=== PATIENT | male | born 1955 ===

== ENCOUNTER 2019-02-07 08:09 | Emergency (ER) | payer OTHER ==
--- NOTE | 2019-02-07 08:23 | ED ---
Head Injury - HPI Summary HPI Summary: A 63 y/o M presents to ED s/p head trauma onset approx 10-20 mins [employer]. Pt was at work when a 3-inch pipe struck the back of his head, slightly to the left. Patient denies pain at bedside (0 out of 10). Associated sx: nausea, near-LOC. He did not fall to the ground after being struck. Denies neck pain. He is not on blood thinners. - History Of Current Complaint Chief Complaint: EDHeadInjury Stated Complaint: HEAD INJURY/NAUSEOUS PER PT Time Seen by Provider: 02/07/19 08:18 Hx Obtained From: Patient, Medical Records Mechanism Of Injury: Blunt Trauma, Direct Blow Onset/Duration: Started Minutes Ago, Traumatic, Still Present Severity Currently: Mild Severity Initially: Mild Pain Intensity: 0 Pain Scale Used: 0-10 Numeric Location of Head Injury: Occipital Location: Discrete At: - occipitally, slightly to the L Associated Signs And Symptoms: Nausea, Other: - pos: near-LOC. neg: neck pain. - Allergies/Home Medications Allergies/Adverse Reactions: Allergies Allergy/AdvReac Type Severity Reaction Status Date / Time fentanyl Allergy Vomiting Verified 02/07/19 08:19 oxycodone Allergy Vomiting Verified 02/07/19 08:19 Home Medications: Home Medications Losartan TAB* [Cozaar TAB*] 100 mg PO DAILY 02/07/19 [History Confirmed 02/07/19 ] Ropinirole TAB* [Requip TAB*] 0.5 mg PO BEDTIME 02/07/19 [History Confirmed 12/24] PMH/Surg Hx/FS Hx/Imm Hx Previously Healthy: No Endocrine/Hematology History: Reports: Other Endocrine/Hematological Disorders - Waldenstrom's macroglobulinemia Cardiovascular History: Reports: Hx Hypertension GI History: Reports: Hx Gastroesophageal Reflux Disease Infectious Disease History: No Infectious Disease History: Denies: Traveled Outside the [place] in Last 30 Days - Family History Known Family History: Positive: Non-Contributory - Social History Occupation: Employed Full-time Lives: With Family Alcohol Use: None Hx Substance Use: No Substance Use Type: Reports: None Hx Tobacco Use: Yes Smoking Status (MU): Former Smoker Review of Systems Positive: Nausea Musculoskeletal: Other - pos: head trauma Negative: Other - neg: neck pain Neurological: Other - pos: near-LOC All Other Systems Reviewed And Are Negative: Yes Physical Exam - Summary Physical Exam Summary: VITAL SIGNS: Reviewed. GENERAL: Patient is a well-developed and nourished MALE who is lying comfortable in the stretcher. Patient is not in any acute respiratory distress. HEAD AND FACE: 2x2 cm ecchymosis on L occipital temporal area. No hematomas or skull depressions. No sinus tenderness. EYES: PERRLA, EOMI x 2, No injected conjunctiva, no nystagmus. EARS: Hearing grossly intact. Ear canals and tympanic membranes are within normal limits. MOUTH: Oropharynx within normal limits. NECK: Supple, tracheostomy present, no adenopathy, no JVD, no carotid bruit, no c-spine tenderness, neck with full ROM. CHEST: Symmetric, no tenderness at palpation LUNGS: Clear to auscultation bilaterally. No wheezing or crackles. CVS: Regular rate and rhythm, S1 and S2 present, no murmurs or gallops appreciated. ABDOMEN: Soft, non-tender. No signs of distention. No rebound, no guarding, and no masses palpated. Bowel sounds are normal. EXTREMITIES: FROM in all major joints, no edema, no cyanosis or clubbing. NEURO: Alert and oriented x 3. No acute neurological deficits. Speech is normal and follows commands. SKIN: Dry and warm Triage Information Reviewed: Yes Vital Signs On Initial Exam: Initial Vitals Temp Pulse Resp BP Pulse Ox 98.8 F 71 20 107/67 95 02/07/19 08:14 02/07/19 08:14 02/07/19 08:14 02/07/19 08:14 02/07/19 08:14 Vital Signs Reviewed: Yes - Katy Coma Scale Best Eye Response: 4 - Spontaneous Best Motor Response: 6 - Obeys Commands Best Verbal Response: 5 - Oriented Coma Scale Total: 15 Diagnostics - Vital Signs Vital Signs Temp Pulse Resp BP Pulse Ox 02/07/19 08:14 98.8 F 71 20 107/67 95 - Laboratory Lab Statement: Any lab studies that have been ordered have been reviewed, and results considered in the medical decision making process. - CT BRAIN CT Interpretation Completed By: Radiologist Summary of CT Findings: IMPRESSION: No acute intracranial pathology. ED provider has reviewed this report. Head Injury Course/Dx Assessment/Plan: This patient is a 63-year-old male who presents to the emergency department with a chief complaint of having a headache and nausea after he hit his head with a 3 inch pipe. Patient reports that he is not taking any type of blood thinners and he denies any syncopal episodes. Head CT IMPRESSION: NO ACUTE INTRACRANIAL PATHOLOGY. In the ED course the patient was given Zofran and the symptoms have improved. Since the head CT is negative and he does have any neck pain and no other complaints; the patient will be discharged home to follow-up with PCP. Patient is hemodynamically stable alert and oriented 3. All his questions were answered and is no further concerns. - Diagnoses Differential Diagnosis/HQI/PQRI: Concussion Without LOC, Contusion, Hematoma Provider Diagnoses: Head contusion Discharge - Sign-Out/Discharge Documenting (check all that apply): Patient Departure - D/C Patient Received Moderate/Deep Sedation with Procedure: No - Discharge Plan Condition: Stable Disposition: HOME Prescriptions: Ondansetron TAB* [Zofran 4 MG Tab*] 4 mg PO Q6H PRN #10 tab PRN Reason: Nausea Patient Education Materials: Ondansetron (By mouth), Head Injury (ED) Forms: *Work Release Referrals: David Damon MD [Medical Doctor] - 3 Days Additional Instructions: FOLLOW UP WITH YOUR PRIMARY CARE PROVIDER WITHIN 3 DAYS. RETURN TO THE ED FOR ANY WORSENING OR NEW SYMPTOMS. - Billing Disposition and Condition Condition: STABLE Disposition: Home - Attestation Statements Document Initiated by Henry: Yes Documenting Scribe: Ihsan Velasquez Provider For Whom Eronibe is Documenting (Include Credential): Dr. Norman Crawford MD Scribe Attestation: Ihsan Sarmiento scribed for Dr. Norman Crawford MD on 02/07/19 at 1828. Scribe Documentation Reviewed: Yes Provider Attestation: The documentation as recorded by the Ihsan palacios accurately reflects the service I personally performed and the decisions made by , Dr. Norman Crawford MD Status of Scribe Document: Viewed
[2019-02-07] MEDS ORDERED: Ondansetron ODT TAB* 4 MG SL PRN (09:15)
[2019-02-07 09:29] VITALS: BP 106/68
== END 2019-02-07 09:53 | disposition home or self-care (01) ==
LOC: ED 08:09
DX: S00.93XA Contusion of unspecified part of head, initial encounter (principal); W22.8XXA Striking against or struck by other objects, initial encounter; Y92.013 Bedroom of single-family (private) house as the place of occurrence of the external cause; I10 Essential (primary) hypertension; K21.9 Gastro-esophageal reflux disease without esophagitis; Z88.5 Allergy status to narcotic agent
CPT/HCPCS: 70450; 99282